=== PATIENT | female | born 1960 | race Caucasian/White ===

== ENCOUNTER 2021-07-27 05:37 | Outpatient (CLI) | payer BC ==
[~2021-07-27] VITALS: Ht 162.6 cm; Wt 99.7 kg
[2021-07-27] MEDS ORDERED: LISI1TAB26 PO (09:57)
[2021-07-27] MEDS ORDERED: GLUC1CAP37 PO (09:57)
[2021-07-27] MEDS ORDERED: OMG1KC PO (09:57)
[2021-07-27] MEDS ORDERED: DOCU100T7 PO (09:57)
[2021-07-27] MEDS ORDERED: METF-399 PO (09:57)
[2021-07-27] MEDS ORDERED: ASCO-262 PO (09:57)
[2021-07-27] MEDS ORDERED: ZINC50TA58 PO (09:57)
[2021-07-27] MEDS ORDERED: AMOX100T PO (09:57)
[2021-07-27] MEDS ORDERED: ALPR0.5T7 PO (09:57)
[2021-07-27] MEDS ORDERED: FURO20TA4 PO (09:57)
[2021-07-27] MEDS ORDERED: POTA99TA21 PO (09:57)
[2021-07-27] MEDS ORDERED: ATOR80TA76 PO (09:57)
[2021-07-27] MEDS ORDERED: CHOL200014 PO (09:57)
== END 2021-07-27 10:07 | disposition home or self-care (01) ==
LOC: PREOP 05:37
PROVIDERS: ATTEND Surgery
DX: Z01.818 Encounter for other preprocedural examination (principal)

== ENCOUNTER 2021-07-29 09:50 | Day surgery (SDC) | payer BC ==
[2021-07-29] VITALS (11 sets, daily range): BP systolic 114–148; BP diastolic 69–84
[~2021-07-29] VITALS: Ht 122.6 cm; Wt 99.7 kg
[~2021-07-29 09:50] MED LIST: ALPR0.5T7 PO; AMOX100T PO; ASCO-262 PO; ATOR80TA76 PO; CHOL200014 PO; DOCU100T7 PO; FURO20TA4 PO; GLUC1CAP37 PO; LISI1TAB26 PO; METF-399 PO; OMG1KC PO; POTA99TA21 PO; ZINC50TA58 PO
[2021-07-29] MEDS ORDERED: HYDR-3817 PO (10:06)
--- NOTE | 2021-07-29 10:07 | Discharge Inst-Surgical ---
D/C Lap Instructions-KIDO Reconcile Patient Problems Problems Reviewed?: Yes New, Converted, or Re-Newed RX: RX on Chart Follow Up Appt in 2 weeks Activity as tolerated No driving for 24 hours No driving while on pain medications Incentive Spirometry use every 2 hours while awake Regular Diet Symptoms to Report: Fever over 101 degree F, Nausea/Vomiting Infection Signs and Symptoms to report: Increased redness, Foul odor of wound, Increased drainage Bathing instructions: May shower Operative Area Clean/Dry; Keep incision clean/dry If any problems/questions: Contact your physician or go to Emergency Room ADRIANNA BAILEY APRN Jul 29, 2021 10:07
--- NOTE | 2021-07-29 10:08 | Progress Note-Pre Operative ---
Pre-Operative Progress Note H&P Reviewed The H&P was reviewed, patient examined and no changes noted. Date Seen by Provider: Jul 29, 2021 Time Seen by Provider: 10:05 Date H&P Reviewed: Jul 29, 2021 Time H&P Reviewed: 10:00 Pre-Operative Diagnosis: Symptomatic ventral abdominal hernia ADRIANNA BAILEY APRN Jul 29, 2021 10:08
[2021-07-29] MEDS ORDERED: ceFAZolin 2 GM IV Premixed 50 ML IV ONE (10:15)
[2021-07-29] MEDS ORDERED: morphine INJ 10 MG/ML 1ML (SYR OR VIAL) IVP PRN (10:15)
[2021-07-29] MEDS ORDERED: HYDROcodone/APAP 5 MG/325 MG (LORTAB) TAB PO ONE (10:15)
[2021-07-29] MEDS ORDERED: ONDANSETRON 4 MG/2 ML (SDV) Z0FRAN IVP PRN ×2 (10:15→14:30)
[2021-07-29] MEDS ORDERED: ACETAMINOPHEN 325 MG TABLET PO PRN (10:15)
[2021-07-29] MEDS ORDERED: LACTATED RINGERS 1,000 ML IV PRN (10:45)
[2021-07-29] MEDS: LACTATED RINGERS 1,000 ML IV PRN ×3 (10:49→14:18)
[2021-07-29] MEDS ORDERED: LIDOCAINE/EPI 1%-1:200,000 (XYLOCAINE) 30 ML VIAL ONE (12:11)
[2021-07-29] MEDS ORDERED: ROCURONIUM 10 MG/ML 5 ML SYRINGE IV ONE (12:29)
[2021-07-29] MEDS ORDERED: LIDOCAINE PF 2% 5 ML (XYLOCAINE) VIAL ONE (12:29)
[2021-07-29] MEDS ORDERED: proPOfol 200 MG/20 ML (DIPRIVAN) VIAL IV ONE (12:29)
[2021-07-29] MEDS ORDERED: fentaNYL INJ 100 MCG/2 ML AMP ONE (12:29)
[2021-07-29] MEDS ORDERED: SEVOFLURANE (ULTANE) 15 ML INHAL SOLN ONE ×2 (12:29→13:59)
[2021-07-29] MEDS ORDERED: ONDANSETRON 4 MG/2 ML (SDV) Z0FRAN ONE (12:29)
[2021-07-29] MEDS ORDERED: MIDAZOLAM 2 MG/2 ML (VERSED) VIAL ONE (12:30)
[2021-07-29] MEDS ORDERED: morphine INJ 10 MG/ML 1ML (SYR OR VIAL) ONE (13:24)
[2021-07-29] MEDS ORDERED: GLYCOPYRROLATE 0.2 MG/ML (ROBINUL) 2 ML VIAL ONE (13:45)
[2021-07-29] MEDS ORDERED: NEOSTIGMINE 3 MG/3 ML VIAL ONE (13:45)
--- NOTE | 2021-07-29 13:54 | Progress Note-Post Operative ---
Post-Operative Progess Note Surgeon (s)/Corporate Development Analyst (s) Surgeon HEIDY OBRIEN MD Corporate Development Analyst: sara jo TRUCK DRIVER HELPER Pre-Operative Diagnosis Symptomatic ventral abdominal hernia Post-Operative Diagnosis incarcerated vental abd hernia. reducible umbilical hernia. Procedure & Operative Findings Date of Procedure 07/29/21 Procedure Performed/Findings open incarcerated ventral hernia repair with mesh. open umbilical hernia repair with mesh. Anesthesia Type get Estimated Blood Loss Estimated blood loss (mL): minimal Specimens/Packing Specimens Removed hernia sac HEIDY OBRIEN MD Jul 29, 2021 13:54
--- NOTE | 2021-07-29 14:17 | Anesthesia-General Post-Op ---
General Patient Condition Mental Status/LOC: Same as Preop Cardiovascular: Satisfactory Nausea/Vomiting: Absent Respiratory: Satisfactory Pain: Controlled Complications: Absent Post Op Complications Complications None Follow Up Care/Instructions Patient Instructions None needed. Anesthesia/Patient Condition Patient Condition Patient is doing well, no complaints, stable vital signs, no apparent adverse anesthesia problems. No complications reported per nursing. MARTHA FERRIS CRNA Jul 29, 2021 14:17
[2021-07-29] MEDS ORDERED: MEPERIDINE (DEMEROL) INJ 50 MG/ML IVP ONE (14:30)
[2021-07-29] MEDS ORDERED: morphine INJ 10 MG/ML 1ML (SYR OR VIAL) IVP ONE (14:30)
[2021-07-29] MEDS ORDERED: fentaNYL INJ 100 MCG/2 ML AMP IVP ONE (14:30)
--- NOTE | 2021-07-29 15:33 | OPERATIVE REPORT ---
DATE OF SERVICE: 07/29/2021 ATTENDING PRIMARY CARE PHYSICIAN: Alec Horan DO PREOPERATIVE DIAGNOSIS: Incarcerated ventral abdominal hernia. POSTOPERATIVE DIAGNOSES: Incarcerated ventral abdominal hernia, reducible umbilical hernia. PROCEDURE: Open ventral abdominal incarcerated hernia repair with mesh, open umbilical hernia repair with mesh. SURGEON: Noel Obrien MD ASSEMBLY LINE ROBOT OPERATOR: Chad Verduzco APRN ANESTHESIA: General endotracheal. ESTIMATED BLOOD LOSS: Minimal. FINDINGS: Same as postoperative diagnoses. DISPOSITION: The patient tolerated the procedure well. INDICATIONS: The patient is a 60-year-old female with significant size, symptomatic abdominal hernia. She noticed the lesion approximately a year ago and states that this has become significantly larger and more painful. 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 She does report getting constipated on an intermittent basis as well. She was found to have an incarcerated ventral abdominal hernia. DESCRIPTION OF PROCEDURE: The patient was brought to the operating room, laid supine on the table. After adequate IV pain and sedative medications and general endotracheal intubation, the abdomen was prepped and draped in standard surgical fashion. A 0.5% Marcaine with epinephrine was used to anesthetize the overlying skin in the supraumbilical region and a transverse skin incision made using a 15 blade. Subcutaneous tissue was then dissected down and the hernia sac identified and completely dissected out using blunt dissection as well as electrocautery to the fascial base. Hernia sac was then opened using Metzenbaum scissors. There was omentum as well as transverse colon within the hernia sac. Hernia sac was then completely dissected out under direct visualization using electrocautery with visualization of good hemostasis. After the hernia was excised, the abdominal wall was further explored and a reducible umbilical hernia identified. It was then decided to repair both hernias with the same larger mesh and a 15 cm coated polypropylene mesh was then placed into the larger ventral defect overlying this defect as well as the umbilical hernia. We then proceeded with a circumferential transfascial sutures first encompassing the umbilical hernia and then this was followed by the ventral hernia using interrupted 0 Prolene sutures with visualization of good hemostasis. The subcutaneous tissue at both sites were then reapproximated using 3-0 Vicryl interrupted sutures. Skin was closed using 4-0 Monocryl running subcuticular sutures. Both wounds were then cleaned and covered with Dermabond. Both areas were then covered with tonsil sponges followed by gauze followed by abdominal binder. The patient tolerated the procedure well. We will start IV normal pain medication as well as a clear liquid diet. Once she is tolerating clears with good pain control with oral pain medications, ambulating well, we will discharge her home. She will be instructed to do no heavy lifting or exertion, especially for the first 2 weeks and then slowly incorporate some activity; however, continue to refrain from heavy lifting for a total of 6 weeks from the surgery date. Job ID: [id number] DocumentID: [id number] Dictated Date: 07/29/2021 14:03:57 Success Coach Date: 07/29/2021 15:33:25 Dictated By: NOEL OBRIEN MD
== END 2021-07-29 19:00 | disposition home or self-care (01) ==
LOC: SDC 09:50
PROVIDERS: ATTEND Surgery
DX: K43.6 Other and unspecified ventral hernia with obstruction, without gangrene (principal); K42.9 Umbilical hernia without obstruction or gangrene; I10 Essential (primary) hypertension; E78.00 Pure hypercholesterolemia, unspecified; F41.9 Anxiety disorder, unspecified; F17.210 Nicotine dependence, cigarettes, uncomplicated; E78.5 Hyperlipidemia, unspecified; E11.42 Type 2 diabetes mellitus with diabetic polyneuropathy; F32.A Depression, unspecified; Z11.2 Encounter for screening for other bacterial diseases; Z79.84 Long term (current) use of oral hypoglycemic drugs; Z79.899 Other long term (current) drug therapy
CPT/HCPCS: 49561; 49568; 49585; 87081; 94664; C1781

== ENCOUNTER → 2023-08-07 | Outpatient (CLI) | payer BC ==
[~2023-08-07] MED LIST changes: +CATHETER FLUSH 10 ML SYR IVP PRN; -CHOL200014 PO; +CHOL200052 PO; +HYDR-3817 PO; -LISI1TAB26 PO; +LISI1TAB48 PO; -POTA99TA21 PO; +POTA99TA26 PO
[2023-08-07 09:23] VITALS: BP 146/86
--- NOTE | 2023-08-07 12:28 | Cardiology Stress Test Report ---
Stress Test Report Date of Procedure/Referring: Date of Procedure: Aug 07, 2023 PCP Alec Horan DO Admitting Physician Admitting Physician: Attending Physician: Paty Medrano MD Baseline Heart Rate: 70 Baseline Blood Pressure: Blood Pressure Systolic: 146 Blood Pressure Diastolic: 86 Vital Signs Date Time Temp Pulse Resp B/P (MAP) Pulse Ox O2 Delivery O2 Flow Rate FiO2 08/07/23 09:23 61 146/86 (106) Baseline Vital Signs Vital Signs Date Time Temp Pulse Resp B/P (MAP) Pulse Ox O2 Delivery O2 Flow Rate FiO2 08/07/23 09:23 61 146/86 (106) Baseline EKG: Baseline EKG: NSR Summary: After explaining the procedure and details to the patient, she signed the consent and was brought to the stress nuclear laboratory. Patient exercised on standard Michelet protocol, EKG, heart rate and blood pressure were monitored continuously, resting and stress doses of radio tracer were injected, imaging was acquired and reviewed in the short axis, horizontal long axis and vertical long axis views Patient was able to exercise for a total of 2.30 minutes on Michelet protocol, METs 3.9 Maximum heart rate 148 Maximum blood pressure 248/91 Stress EKG, Minimal nondiagnostic changes Recovery EKG, Return to baseline TID: 0.88 SSS: 0 SDS: 0 EF: 64 Conclusion: Poor exercise tolerance for 2 minutes and 30 seconds on standard Michelet protocol total of 3.9 METS achieving 93% of maximal expected heart rate Appropriate heart rate response to exercise with hypertensive response to exercise with peak blood pressure 248/91 return to baseline during recovery Nondiagnostic EKG changes with exercise Breast attenuation with typical female pattern, no significant ischemia or infarction noted on SPECT images Normal left ventricular size, ejection fraction 64% Copy Copies To 1: ALEC HORAN BASHAR J MD Aug 07, 2023 12:28
== END ==
LOC: CARD 08:02
PROVIDERS: ATTEND Internal Medicine Cardiovascular Disease
DX: I11.9 Hypertensive heart disease without heart failure (principal); I34.0 Nonrheumatic mitral (valve) insufficiency; I25.10 Atherosclerotic heart disease of native coronary artery without angina pectoris
CPT/HCPCS: 78452; 93017; A9502; C8929; 93306